=== PATIENT | female | born 1990 | race Hispanic/Latino ===

== ENCOUNTER 2020-11-26 00:50 | Emergency (ER) | payer OTHER, SELFPAY ==
[2020-11-26 01:40] LABS: #Eosinphils 0.2 thou/uL (0.0-0.7); #Lymphocytes 1.9 thou/uL (1.20-3.40); #Monocytes 0.7 thou/uL (0.11-0.59); #Neutrophils 7.6 thou/uL (1.40-6.50); %Basophils 0.4 % (0.0-1.0); %Eosinophils 1.5 % (0.0-10.0); %Lymphocytes 18.4 % (21.0-51.0); %Monocytes 6.4 % (0.0-10.0); %Neutrophils 73.4 % (42.0-75.0); Hemoglobin 12.3 g/dL (12.0-16.0); Mean Corpuscular HGB CONC 33.6 g/dL (32.0-36.0); Mean Corpuscular Hemoglobin 29.1 pg (27.0-31.0); Mean Corpuscular Volume 86.6 fL (78.0-98.0); Mean Platelet Volume 8.2 fL (7.4-10.4); Platelet Count 276 thou/uL (130-400); RBC Distribution Width 11.8 % (11.5-14.5); Red Blood Cell (RBC) Count 4.21 mill/uL (4.20-5.40); White Blood Cell (WBC) Count 10.4 thou/uL (4.8-10.8)
[2020-11-26 02:07] LABS: Bacteria/HPF None Seen HPF (None Seen); RBC/HPF Greater than 50 HPF (0-3); WBC/HPF 21-50 HPF (0-3)
[2020-11-26 02:28] LABS: Bilirubin Negative (Negative); Blood, Urine Large (Negative); Glucose, Urine (Dipstick) Negative (Negative); Ketone, Urine Negative (Negative); Leukocyte Negative (Negative); Nitrite Negative (Negative); Protein, Urine (Dipstick) 100 mg/dL (Neg-Trace); Urobilinogen 0.2 mg/dL (Less than 2); pH, Urine 6.5 (5.0-9.0)
[2020-11-26 02:30] LABS: Clarity Cloudy (Clear); Specific Gravity, Urine 1.021 (1.002-1.036)
[2020-11-26] MEDS ORDERED: Acetaminophen 500 MG TAB ONE (03:01)
--- NOTE | 2020-11-26 07:59 | ULT ---
PRELIMINARY REPORT/[facility]/AFTER HOURS PROCEDURE COMPLETE OBSTETRICAL ULTRASOUND AT GREATER THAN FOURTEEN WEEKS: CLINICAL HISTORY: Heavy vaginal bleeding. TECHNIQUE: Transvaginal imaging of the maternal pelvis and a <14 week gestation with image documentation. COMPARISON: None provided. FINDINGS: GESTATION: Initial images demonstrate a gestational sac just inside the vagina with a CRL of 4 mm cor responding to 6 weeks 1 day. This was subsequently removed by the emergency room physician and the examination was completed. UTERUS: Unremarkable. No myometrial mass. Measures 8.3 x 4.2 x 4.5 cm. The endometrium measures 10 mm. CERVIX: Closed. Unremarkable. OVARIES: Unremarkable. No mass. The RIGHT side measures 2.8 x 1.1 x 2.2 cm and the LEFT side measure s 2.9 x 1.4 x 3.5 cm. FREE FLUID: Trace free fluid. IMPRESSION: Gestational sac just inside the vagina which was removed by the emergency room physician. The pelvic structures appear normal with trace pelvic fluid. ELECTRONICALLY SIGNED BY: Jose Glasgow MD Nov 26, 2020 4:09:39 AM [employer] This report is intended for review by the ordering physician only, in accordance of law. If you recei ve this report in error, please call [facility] at [phone]. FINAL REPORT ENDOVAGINAL PELVIC ULTRASOUND: HISTORY: Heavy vaginal bleeding. TECHNIQUE: Endovaginal imaging of the pelvis is performed. Ovaries are interrogated with Loo-scale, color-flow, Doppler imaging and spectral wave-form analysis. FINDINGS: Initial images demonstrate a gestational sac in the vaginal vaults. There does appear to be a p ole. This gestational sac was subsequently removed by the ER physician. Uterus: No myometrial masses. Uterus measures 8.3 x 4.2 x 4.5 cm. Slightly heterogeneous echotexture of the endometrium, measuring 1.0 cm. Left and right ovary have a normal echotexture. Right ovary measures 2.8 x 1.2 x 2.2 cm. Left ovary measures 1.4 x 3.5 x 2.9 cm. Trace free fluid. Ovarian Doppler: Vascular flow to both ovaries. IMPRESSION: 1. This report is in agreement with initial report by [facility]. 2. Gestational sac initially in the vaginal vault which was subsequently removed by the ER physician. No evidence of an intrauterine gestation. CODE QA Transcribed Date/Time: 11/26/2020 10:44 AM
== END 2020-11-26 05:02 | disposition home or self-care (01) ==
LOC: ERS 00:50
DX: O03.9 Complete or unspecified spontaneous abortion without complication (principal)
CPT/HCPCS: 36415; 76856; 81003; 81015; 84702; 85025; 86900; 86901; 87077; 87086; 88305